=== PATIENT | male | born 1960 | race Caucasian/White ===

== ENCOUNTER → 2018-12-03 13:50 | Outpatient (CLI) | payer SELFPAY ==
--- NOTE | 2018-12-03 13:59 | CT_ITS ---
STUDY: CT MAXILLOFACIAL SINUSES REASON FOR EXAM: Male, 58 years old. Polyposis RADIATION DOSAGE (If Supplied By Facility): CTDIvol = ( 33.45 ) mGy, DLP = ( 797.27 ) mGycm TECHNIQUE: The patient was scanned in a multi detector CT scanner. High resolution axial imaging was performed without the administration of intravenous contrast material. Sagittal and coronal images were reconstructed. Individualized dose optimization techniques were used for this CT. COMPARISON: None. FINDINGS: FRONTAL SINUSES: Is partial opacification of the frontal sinuses. ETHMOIDAL SINUSES: Is partial opacification of the ethmoid sinuses. MAXILLARY SINUSES: There is complete opacification of the maxillary sinuses. There is been a prior antrectomy. SPHENOIDAL SINUSES: There is mucosal thickening in the sphenoid sinuses. There is fluid in the right greater than left mastoid air cells. There is blockage of the bilateral ostiomeatal complex. The right middle turbinate is not well visualized. The left middle turbinate is seen. Normal bilateral inferior turbinates. There is a rightward nasal spur. There is decreased leftward nasal deviation. There is a narrowed appearance of the airways. In in the left anterior nasal passageway there is a rounded focal density suggestive of a possible polyp extending from the left inferior turbinate for the mucosa image #76. There is a thickened appearance of the soft tissue about the right-sided turbinates extending from the right side maxillary sinus also causing narrowing of the right-sided nasal passageway. The visualized osseous structures are normal. The visualized bilateral orbital contents are normal. There is calcification of the left side carotid artery. Minimal calcification of the right-sided cavernous carotid artery. CT/Sinus/Facial Bone IMPRESSION: There is extensive opacification of the sinuses as detailed above consistent with diffuse polyposis. Infection is not excluded. Electronically Signed: Nadine Martel MD at 17:36 EST Tel , Service support ,
== END ==
PROVIDERS: Referring Provider Otolaryngology; Visit Provider Otolaryngology
DX: J33.8 Other polyp of sinus (principal)
CPT/HCPCS: 70486

== ENCOUNTER 2019-01-03 09:59 | Day surgery (SDC) | payer SELFPAY ==
[2019-01-03] VITALS (7 sets, daily range): BP systolic 118–131; BP diastolic 72–83; PULSE 52–64; RESP 16–57; TEMP 36.5–36.6; O2SAT 16–99; BMI 27.1
--- NOTE | 2019-01-03 10:15 | ETH_PTH ---
PATIENT: ROSA POE LOC: [facility] [place] U#:[id number] AGE/SX: 58/M ROOM: RE01/03/[address]: Dr. Ronnie Vaughn MD : 1960 BED: DIS: 01/03/2019 SPEC #: [id number] RECD: 01/03/19 13:29 STATUS: ADILSON FREDERIC #: [id number] PEG: 01/03/19 10:[address]: Ronnie Vaughn DEPT: SURGICAL PATHOLOGY RECD BY: Mitul Juárez ENTERED: 01/03/19 13:41 SP TYPE: ETH TISS OTHR DR: Dr. Richardson Arias MD Tissues: A - Ethmoid sinus, NOS B - Ethmoid sinus, NOS Procedures: Decalcification bone/plaque Surgery Specimen Level IV HEADER OPERATION: Bilateral total ethmoidectomy, bilateral maxillary antrostomy PRE-OP DIAGNOSIS: Nasal congestion, ethmoidal polyp of sinus TISSUE SUBMITTED: A - Left sinus contents, B - Right sinus contents MICROSCOPIC DIAGNOSIS A. Left sinus contents: Fragments of respiratory mucosa with acute and chronic inflammation and bone. B. Right sinus contents: Fragments of respiratory mucosa with acute and chronic inflammation and squamous metaplasia. SOURAV:amelie 01/06/19 MICROSCOPIC DESCRIPTION Slides are reviewed. GROSS DESCRIPTION A - Received in fixative is one container labeled with the patient's name and designated right sinus contents. The specimen consists of multiple fragments of hemorrhagic soft tissue mixed with fragments of bone that in aggregate measure 5 x 3 x 0.2 cm. The entire specimen is submitted in two cassettes after decalcification. B - Received in fixative is one container labeled with the patient's name and designated left sinus contents. The specimen consists of multiple fragments of hemorrhagic soft tissue mixed with possible fragments of bone that in aggregate measure 7.5 x 3 x 0.2 cm. The entire specimen is submitted in three cassettes after decalcification. / SOURAV:amelie 01/03/19 TC:3 CPT: 04796 x2, [id number] x2
[2019-01-03] MEDS: Oxymetazoline 0.05% 1 SPRAY SPRAY.BTL NASAL (10:20)
[2019-01-03 10:27] LABS: Absolute Lymphocyte Count 1.37 X10^3/ul (0.83-4.51); Basophil# 0.02 X10^3/uL; Basophil% 0.3 % (0-1); Eosinophil# 0.18 X10^3/uL; Eosinophils% 2.4 % (0-5); Hematocrit 44.6 % (40-54); Hemoglobin 15.2 g/dl (13.0-16.5); Lymphocyte # 1.37 X10^3/ul (4.0); Lymphocyte % 18.4 % (19-41); Mean Corp Hgb Conc 34.1 g/gl (32-36); Mean Corpuscular Hgb 30.3 pg (27.0-32.0); Mean Platelet Vol. 8.6 fl (6.2-12.0); Monocyte# 0.82 X10^3/uL; Neutrophil # 5.02 X10^3/uL (2.7-7.7); Neutrophil % 67.6 % (47-70); POSITIVE COUNT NO; POSITIVE DIFFERENTIAL NO; POSITIVE MORPHOLOGY NO; Platelet Count 241 K/mm3 (150-450); RBC Distribution Width CV 12.9 % (11.6-14.6); RBC Distribution Width SD 41.7 fl (35.1-43.9); Red Blood Count 5.01 M/mm3 (4.6-6.2); White Blood Count 7.4 K/mm3 (4.4-11.0)
--- NOTE | 2019-01-03 10:41 | DCINST_ITS ---
You will use the following diet at home:: Regular Discharge Activity: - - No noseblowing Additional Activity Instructions:: Start irrigation on 01/04/19. Irrigate 4x/day. Allergies/Adverse Reactions: Allergies No Known Allergies Allergy (Verified 12/30/18 09:49) Medications to take at Discharge NK 12/30/18 Primary Care Physician: Richardson Arias MD [Primary Care Provider] - Test Results: Test results from this visit will be discussed in further detail at your follow- up appointment, if applicable.
[2019-01-03 10:57] LABS: Anion Gap 5 (5-15); BUN 13 mg/dL (7-18); BUN/Creat Ratio 11.1 RATIO (10-20); Calcium,Total 8.9 mg/dL (8.5-10.1); Chloride 106 mmol/L (98-107); Creatinine, Serum 1.17 mg/dL (0.70-1.30); EST Glomerular Filtration Rate 68 mL/min (>60); Est Glom Filt Rate - Afr Amer 83 mL/min (>60); Estimated Creatinine Clearance 67.39 ml/min; Glucose 107 mg/dL (74-106); Potassium 4.3 mmol/L (3.5-5.1); Sodium Level 140 mmol/L (136-145)
[2019-01-03] MEDS: Oxymetazoline 0.05% 1 SPRAY SPRAY.BTL 15 SPRAY (11:00)
--- NOTE | 2019-01-03 12:05 | PCM.OPRPT ---
Report of Operation Date of Procedure: 01/03/19 Pre-Operative Diagnosis: chronic sinusitis Post-Operative Diagnosis: same Surgery/Procedure Performed:: Bilateral total ethmoidectomy. Bilateral maxillary antrostomy. Use of navigation Description of Surgical Findings:: Large polyps bilaterally Type of Anesthesia:: General Anesthesiologist: Loki Hagan Specimen's removed: sinus contents Estimated Blood Loss (mL): minimal Description of Procedure: The patient was taken to the OR on 01/03/19. He was placed in the supine position on the Or table. He was given sufficient general endotracheal anesthesia. The head of bed was elevated 30 degrees. The navigation equipment was placed. The patient was draped steriley. The navigation was then registered per protocol. Using zero and 30 rigid nasal endoscopes throughout the entire case, I first injected all polyp bilaterally with 1% lidocaine with epinephrine [id number]. I then started on the left side by removing the large nasal polyps. This was chased superiorly and medial to the middle turbinate all the way to the nasal roof. Tissue was left behind on the nasal roof so as not to breach the skull base. I then medialized the middle turbinate with a freer elevator. A large polyp was removed from the maxillary antrostomy thus recreating the maxillary antrum. The anterior and posterior ethmoid were opened with a curette, Blakesly Syeda forceps and sinus shaver. Hemostasis was achieved with afrin pledgets and Valarie. Next attention was turned to the right side. I removed large polyps from the nasal cavity on the right with a sinus shaver. The maxillary antrum was opened with a back biter. Anterior and posterior ethmoidectomy was carried out with a curette, forceps and sinus shaver. Navigation was used on both sides to verify position of the lamina paprycea and skull base. Hemostasis was achieved with afrin and Valarie, and sparing suction cautery. Once hemostasis was achieved, the procedure was terminated. The patient was awoken and brought to the recovery room in stable condition. Blood loss minimal, replacement none. Sponge, needle and instrument count were correct at the end of the procedure.
== END 2019-01-03 14:08 | disposition home or self-care (01) ==
LOC: SDC 10:05 → AC 10:06
PROVIDERS: Family Provider Family Medicine; PCP Family Medicine; Referring Provider Otolaryngology; Visit Provider Otolaryngology
PROC: (CPT 31255; principal; 2019-01-03 09:45)
DX: J32.8 Other chronic sinusitis (principal); J33.8 Other polyp of sinus; F17.210 Nicotine dependence, cigarettes, uncomplicated
CPT/HCPCS: 00160; 31255; 31267; 80048; 85025; 88305; 88311; J7120; J2405